=== PATIENT | female | born 2005 | race Caucasian/White ===

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

== ENCOUNTER 2024-06-05 19:39 | Emergency (ER) | payer MEDICAID ==
[2024-06-05] MEDS: Dexamethasone 4 MG/ML SDV IVPUSH ONE (20:58)
[2024-06-05] MEDS: Lidocaine 1% 10 ML MDV INJECT ONE (20:59)
== END 2024-06-05 21:14 | disposition home or self-care (01) ==
LOC: JP.ED 19:39
DX: G43.909 Migraine, unspecified, not intractable, without status migrainosus (principal); Z86.16 Personal history of COVID-19; F17.210 Nicotine dependence, cigarettes, uncomplicated
CPT/HCPCS: 96374; 99283; 99283-25; J1100